=== PATIENT | male | born 1985 | race Caucasian/White ===

== ENCOUNTER 2021-04-04 02:51 | Emergency (ER) | payer OTHER, SELFPAY ==
--- NOTE | ~2021-04-04 | XR_ITS ---
EXAMINATION: XR chest 1V portable EXAM DATE: 04/04/2021 04:10 INDICATION: Right-sided chest wall pain. TECHNIQUE: Portable AP frontal chest x-ray was obtained. There is no prior study for comparison. FINDINGS: The lungs are clear. There are no pleural effusions. The cardiomediastinal silhouette is within normal limits. There is no pneumothorax suspected. The bones and soft tissues are unremarkab le. IMPRESSION: No acute cardiopulmonary findings. Reviewed, dictated and finalized at location A. [facility]
[2021-04-04 02:54] VITALS: BP 143/79; PULSE 108; RESP 18; TEMP 36.5; O2SAT 96
--- NOTE | 2021-04-04 04:01 | ED_ITS ---
HPI - General Adult General Chief complaint: Unspecified Stated complaint: Right sided pain Time Seen by Provider: 04/04/21 03:54 History of Present Illness HPI narrative: Patient 36-year-old gentleman who presents the emergency department with chief complaint of right-sided chest wall pain. The patient states that he moved to tanning bed and then started getting sore on the right side of his chest. The patient states the pain is worse with movement and improved with rest. Patient states it hurts whenever he takes a deep breath. Related Data Allergies Allergy/AdvReac Type Severity Reaction Status Date / Time No Known Allergies Allergy Verified 04/04/21 02:57 Review of Systems Review of Systems: A 10 system review of systems was completed on the patient and is negative except for what is stated in the HPI. Nursing and ancillary documentation was reviewed. Exam Narrative: GENERAL: Well-appearing, well-nourished, and in no acute distress. HEAD: Normocephalic, atraumatic. EYES: PERRLA and EOMI. ENT: Nares clear, no rhinorrhea or epistaxis. Mucous membranes moist. NECK: Supple. CHEST: Clear to auscultation. No respiratory distress. There is tenderness palpation the right chest wall HEART: Regular rate and rhythm. No murmur heard. Normal peripheral pulses. ABDOMEN: Soft, nontender, nondistended, normal active bowel sounds. EXTREMITIES: Normal range of motion. No edema. SKIN: Warm, dry, no rash. NEURO: No focal deficits. Alert and oriented x3. PSYCH: Normal mood and affect. Course Vital Signs Vital signs: Vital Signs Temperature 36.5 C 04/04/21 02:54 Pulse Rate 108 H 04/04/21 02:54 Respiratory Rate 18 04/04/21 02:54 Blood Pressure 143/79 H 04/04/21 02:54 Pulse Oximetry 96 04/04/21 02:54 Temperature 36.5 C 04/04/21 02:54 Pulse Rate 72 04/04/21 04:27 Respiratory Rate 18 04/04/21 04:27 Blood Pressure 126/73 04/04/21 04:27 Pulse Oximetry 98 04/04/21 04:27 Medical Decision Making Vital Signs Vital Signs: Vital Signs Temperature 36.5 C 04/04/21 02:54 Pulse Rate 108 H 04/04/21 02:54 Respiratory Rate 18 04/04/21 02:54 Blood Pressure 143/79 H 04/04/21 02:54 Pulse Oximetry 96 04/04/21 02:54 Temperature 36.5 C 04/04/21 02:54 Pulse Rate 72 04/04/21 04:27 Respiratory Rate 18 04/04/21 04:27 Blood Pressure 126/73 04/04/21 04:27 Pulse Oximetry 98 04/04/21 04:27 Discharge Plan Discharge Clinical Impression: Chest wall pain Patient Disposition: Home, Self-Care Condition: Stable Instructions: Antibiotic Form, Chest Wall Pain (ED) Prescriptions: New cyclobenzaprine 10 mg tablet 10 mg PO TID PRN (Reason: muscle spasm) Qty: 21 RF: 0 diclofenac potassium 50 mg tablet 50 mg PO TID PRN (Reason: pain) Qty: 30 RF: 0 Follow-up/Referrals: PHYSICIAN,ASSISTANT PROFESSOR OF RADIOLOGY [Primary Care Provider] - Shelton Masterson MD [Physician] - Time of Disposition: 04:58
[2021-04-04 04:27] VITALS: BP 126/73; PULSE 72; RESP 18; O2SAT 98
[2021-04-04] MEDS: KETOROLAC 30 MG/ML VIAL (*BKC) IM (04:29)
[2021-04-04] MEDS: CYCLOBENZAPRINE HCL 10 MG TABLET PO (04:29)
[2021-04-04 05:13] VITALS: BP 129/58; PULSE 69; RESP 18; O2SAT 98
== END 2021-04-04 05:15 | disposition home or self-care (01) ==
PROVIDERS: Emergency Provider Emergency Medicine
DX: R07.89 Other chest pain (principal); X50.0XXA Overexertion from strenuous movement or load, initial encounter
CPT/HCPCS: 71045; 96372; 99283; A9270; J1885